=== PATIENT | male | born 1950 | race Caucasian/White ===

== ENCOUNTER 2018-05-19 09:32 | Day surgery (SDC) | payer MEDICARE, OTHER ==
[~2018-05-19 09:32] MED LIST: CEFAZOLIN 2 Gram 2 GM/50 ML BAG IVPB ONE; CELECOXIB 100 MG CAPSULE PO ONE; FAMOTIDINE 20MG TABLET PO ONE; MECLIZINE 25 MG TABLET PO ONE; METOCLOPRAMIDE 10 MG TABLET PO ONE; VANCOMYCIN HCL 1,000 MG in DEXTROSE 5 % IN WATER 250 ML IVPB ONE
[2018-05-19] MEDS ORDERED: BUPIVACAINE 0.5% W/EPI MPF 30 ML VIAL IVP ONE (09:33)
[2018-05-19] MEDS ORDERED: TRANEXAMIC ACID 1,000 MG/10 ML ML IV ONE (09:33)
[2018-05-19] MEDS ORDERED: ROPIVACAINE HCL (NAROPIN) /PF 5MG/ML 20ML VIAL IV ONE (09:33)
[2018-05-19] MEDS ORDERED: *PACU ONLY* KETAMINE HCL 10 MG/ML (20ML) VIAL IV ONE (09:33)
[2018-05-19] MEDS ORDERED: LIDOCAINE 2% MDV (20MG/ML) 20ML VIAL IV ONE (09:33)
[2018-05-19] MEDS ORDERED: DEXAMETHASONE 4 MG/ML 1ML VIAL IVP ONE (09:33)
[2018-05-19] MEDS ORDERED: PROPOFOL 10 MG/ML VIAL IV ONE (09:33)
[2018-05-19] MEDS ORDERED: MIDAZOLAM HCL 2MG/2ML VIAL IV ONE (09:33)
[2018-05-19 10:18] LABS: ABO GROUP A; ANTIBODY SCREEN NEGATIVE (NEGATIVE); RH TYPE POSITIVE
[2018-05-19] MEDS ORDERED: NALOXONE 0.4 MG/1 ML VIAL IVP PRN (15:01)
[2018-05-19] MEDS ORDERED: ACETAMINOPHEN 325 MG TAB PO PRN (15:01)
[2018-05-19] MEDS ORDERED: AL HYDROX/MAG HYDROX 30ML UD PO PRN (15:01)
[2018-05-19] MEDS ORDERED: BISACODYL 10 MG SUPP RC PRN (15:01)
[2018-05-19] MEDS ORDERED: ZOLPIDEM TARTRATE 5 MG TABLET PO PRN (15:01)
[2018-05-19] MEDS ORDERED: KETOROLAC 30 MG/ML VIAL IVP PRN ×2 (15:01)
[2018-05-19] MEDS ORDERED: MAGNESIUM HYDROXIDE 30 ML UDC PO PRN (15:01)
[2018-05-19] MEDS ORDERED: DIPHENHYDRAMINE HCL 25 MG CAPSULE PO PRN (15:01)
[2018-05-19] MEDS ORDERED: HYDROMORPHONE HCL 2 MG/ML VIAL IM PRN (15:01)
[2018-05-19] MEDS ORDERED: TRAMADOL HCL 50 MG TABLET PO PRN (15:01)
[2018-05-19] MEDS ORDERED: ONDANSETRON HCL IV 4 MG/2 ML VIAL IVP PRN (15:01)
[2018-05-19] MEDS ORDERED: ACETAMINOPHEN W/ CODEINE 300MG/60MG TABLET PO PRN ×2 (15:01)
--- NOTE | 2018-05-19 17:54 | Rehab Evaluation ---
Patient Information - Patient Information Diagnosis: L knee OA Ordered Treatment: PT Evaluate and Treat Status: Initial Evaluation Surgery: Yes (L TKA) Date of Surgery: 05/19/18 Past Medical/Surgical Hx: PAST MEDICAL/SURGICAL HISTORY Past Surgical History bilat shoulder RTC total hip knee scope PMH - Respiratory Hx Respiratory Disorders Yes Hx Bronchitis Yes Hx Sleep Apnea Yes Hx of CPAP Yes PMH - Cardiovascular Hx Cardiovascular Disorders Yes Hx Edema Yes: mild in the past Hx Hypertension Yes: on meds good control Exercise Tolerance Fair Comment: d/t knee pain PMH - Neuro Hx Neurological Disorders No PMH - GI Hx Gastrointestinal Disorders Yes Hx Ulcer Yes: in the past PMH - Hx Genitourinary Disorders No PMH - Endocrine Hx Endocrine Disorders No PMH - Musculoskeletal Hx Musculoskeletal Disorders Yes Hx Arthritis Yes Hx Gout Yes PMH - Psych Hx Psychiatric Problems Yes Hx Anxiety Yes Hx Depression Yes PMH - Hematology/Oncology Hx Hematology/Oncology Yes Disorders Hx Bruising Yes: bruises easily Premorbid Status: Detail (The patient was independent with all mobility.) Social History: Detail (The patient lives with spouse in a one story house with 3 steps at the enterance with one hand rail. The patient has two bathrooms but will be using the one that has the [id number] stall and standard toilet. The patient has a walker with 2 wheels and a std. cane.) Precautions: [place], Fall, Other (WBAT on the L LE) - Time With Patient Total Time Spent With Patient (Min): 30 Treatment Procedures: Detail (Initial Evaluation and gait training.) Subjective Information - Subjective Information Per Patient (The patient has no complaints of pain) Objective Data - Mental Status Patient Orientation: Oriented x3 - Visual Perception Appears within normal limits for therapeutic activities - ROM Not within normal limits (The patient has limited L knee AROM as to be expected following surgery. All other LE AROM is WNL.) - Strength/Tone Not within normal limits (The patient's L LE was not tested secondary to s/p surgery however is funtional (the patient is able to complete a SLR). R LE is 4 + to 5/5.) - Bed Mobility Independent (Independent with supin to and from sit transfer and scooting up in bed.) - Transfers Independent (Independent sit to and from stand transfer) - Balance Balance Sitting: Good Balance Standing: Good - Sensation Intact - Gait Detail (The patient ambulated with standard walker, WBAT on the L LE independently a distance of 80 feet x 1.) Therapy Assessment - Therapy Assessment Detail (The patient was independent with bed mobility, transfers and ambulation. Feel the patient will progress well with mobility.) Patient Education - Patient Education Teaching Topic: Exercise/Activity (The patient completed TKA HEP including heel slides, ankle pumps, quad sets, gluteal sets, hamstring sets and SLR.) Response: Return Demonstration Teaching Method: Discussion, Handout Teaching Recipient: Patient Barriers To Learning: None Problem List - Problem List Physical Therapy Problem List: Detail (1) Decreased L LE strength and L knee AROM as to be expected following surgery. 2) Non ambulatory on stairs.) Goals - Goals Physical Therapy Goals: The patient will ambulate on stairs with supervision for safety. Prognosis - Prognosis Good Plan - Plan Physical Therapy Plan: PT 1 to 2 visits for gait training on stairs.
[2018-05-19] MEDS: HYDROCODONE/APAP 10/325 TABLET PO PRN (20:39)
[2018-05-19] MEDS ORDERED: CEFAZOLIN 1 Gram 2 GM/100 ML BAG IVPB SCH (20:45)
[2018-05-19] MEDS ORDERED: CEFAZOLIN 2 Gram 2 GM/50 ML BAG IVPB SCH (21:00)
[2018-05-19] MEDS: DOCUSATE SODIUM 100 MG CAPSULE PO SCH (21:14)
[2018-05-19] MEDS ORDERED: CEFAZOLIN 1 Gram 1 GM/50 ML BAG IVPB ONE (22:15)
--- NOTE | 2018-05-19 22:31 | Operative Note ---
DATE OF SURGERY: 05/19/2018 PREOPERATIVE DIAGNOSIS: END-STAGE ARTHROSIS OF THE LEFT KNEE. POSTOPERATIVE DIAGNOSIS: END-STAGE ARTHROSIS OF THE LEFT KNEE. PROCEDURE: Cemented left total knee arthroplasty using [employer] Marjorie II components, with a size 6 Oxinium posterior stabilized femoral component, a size 6 stemmed tibial baseplate, a 9 mm lipped posterior stabilized tibial insert, and a 35 mm all-plastic patella. STAFF SURGEON: ANNALEE CHRISTIANSON M.D. ANESTHESIA: SPINAL. PREPARATION: CHLORAPREP. INDIVIDUAL CONSIDERATIONS: NONE. PROCEDURE: The patient was taken to the Operating Room and placed supine on the operating table. He had the successful induction with spinal anesthetic. His left lower extremity was prepped and then draped in the usual fashion. The limb was elevated and the tourniquet was inflated to 215 mmHg. The patient had a midline approach to the knee. Sharp dissection was carried down through the skin and subcutaneous tissues. Small veins were coagulated with a Bovie. A medial arthrotomy was performed. The patella was everted and the knee was flexed. The patient had exposed bone throughout with bone loss medially. Large osteophytes. The fat pad was resected. There really wasn't much of an ACL and the PCL was very atrophic and macerated to boot. Provisional anterior meniscectomies were performed and the capsule was released from the medial proximal tibia. The initial femoral elevator pilot hole was then made freehand. The intramedullary femoral cutting jig was placed. It was cut in 7.0 degrees of valgus and adjusted for rotation and secured with pins for a 10 mm resection. The initial transverse cut was then made. The skin guide was placed for the anterior and posterior elevator pilot holes. It was found that a size 6 would be appropriate. The anterior and posterior cuts followed by chamfer cuts were made, osteophytes were removed, and a size 6 trial was placed and found to fit well. The tibia was brought forward and the remainder of the meniscal remnants were removed with a Bovie. The extraarticular tibial cutting jig was placed. It was cut in neutral with a 3 degree AP slope. Care was taken to adjust for rotation and flexion using the extraarticular alignment guide and bony landmarks. It was set for a 9 mm resection, keyed off the high lateral side, and secured with pins. When cutting the tibia, I attempted to preserve whatever was left of the PCL. Large medial osteophytes were removed and then I was able to fit a size 6 baseplate trial. It was adjusted for rotation. With the femoral component and a 9 mm tibial component, there was excellent stability except for posteriorly and at this point, I just covered the PCL. It was basically incompetent and I elected to go to a posterior stabilized. The femoral cutting jig for the posterior stabilized was then attached. It was reamed in the notch and the box cutting osteotome was used to remove the bone and then was it was debrided out with a Bovie. After irrigation, I was able to cut the patella freehand. He had a thick patella, removing 9 mm of bone. The tourniquet was let down briefly to get bleeders posteriorly and placed back up again. The knee was then thoroughly irrigated out with pulsatile Betadine and saline to remove any visual or palpable debris. Bony surfaces were then dried. The size 6 stemmed tibial baseplate was cemented into place, followed by cementing in the size 6 Oxinium posterior stabilized femoral component, followed by impaction of the 9 mm posterior stabilized tibial insert, followed by cementing in the 35 mm all-plastic patella. Implant surfaces were compressed , excess cement was removed, and then after the cement had set, there was excellent motion and stability, ligamentous balance, rotation and alignment and patellofemoral tracking were through to be normal. Again, thorough irrigation. The tourniquet was let down and hemostasis was obtained with the Bovie. I took 30 mL of 0.5% Marcaine with Epinephrine and infiltrated the periosteum and skin and subcutaneous tissue. I then closed the capsule with a running #2 Quill, the subcu was closed in layers with a running 0 Quill, and the skin was closed with medina. The patient did receive a gram of Tranexamic Acid preoperatively. I mixed a gram of Tranexamic Acid with 30 mL of saline and injected it into the knee through a sterile #18 gauge needle and a sterile Bulkee compressive dressing was applied. The patient tolerated the procedure well. Needle and sponge counts were correct. Estimated blood loss was minimal and he was taken back to Recovery in good condition. There were no complications. cc: Dr. Comfort Healy JOB NUMBER: [id number] [id number]
[2018-05-20] MEDS: HYDROCODONE/APAP 10/325 TABLET PO PRN ×3 (04:33→13:43)
[2018-05-20] MEDS: CEFAZOLIN 1 Gram 1 GM/50 ML BAG IVPB SCH ×4 (04:34→13:07)
[2018-05-20] MEDS: POTASSIUM CHLORIDE/D5-0.9%NACL 20 MEQ/1,000 ML BAG IV SCH ×2 (04:39→04:43)
[2018-05-20 06:48] LABS: HEMATOCRIT 37.2 % (42.0-52.0); HEMOGLOBIN 12.6 gm/dl (14.0-18.0)
[2018-05-20 07:17] LABS: BLOOD UREA NITROGEN 14 mg/dL (8-23); CREATININE 0.8 mg/dL (0.7-1.2); EST GLOMERULAR FILTRATION RATE > 60 mL/min; GLUCOSE,RANDOM 153 mg/dL (74-109)
--- NOTE | 2018-05-20 08:25 | Rehab Evaluation ---
Patient Information - Patient Information Diagnosis: L knee DJD Ordered Treatment: OT Evaluate and Treat Status: Initial Evaluation Surgery: Yes (L TKA) Date of Surgery: 05/19/18 Past Medical/Surgical Hx: PAST MEDICAL/SURGICAL HISTORY Past Surgical History bilat shoulder RTC total hip knee scope PMH - Respiratory Hx Respiratory Disorders Yes Hx Bronchitis Yes Hx Sleep Apnea Yes Hx of CPAP Yes PMH - Cardiovascular Hx Cardiovascular Disorders Yes Hx Edema Yes: mild in the past Hx Hypertension Yes: on meds good control Exercise Tolerance Fair Comment: d/t knee pain PMH - Neuro Hx Neurological Disorders No PMH - GI Hx Gastrointestinal Disorders Yes Hx Ulcer Yes: in the past PMH - Hx Genitourinary Disorders No PMH - Endocrine Hx Endocrine Disorders No PMH - Musculoskeletal Hx Musculoskeletal Disorders Yes Hx Arthritis Yes Hx Gout Yes PMH - Psych Hx Psychiatric Problems Yes Hx Anxiety Yes Hx Depression Yes PMH - Hematology/Oncology Hx Hematology/Oncology Yes Disorders Hx Bruising Yes: bruises easily Premorbid Status: Detail (The patient was independent with all mobility.) Social History: Detail (The patient lives with spouse in a one story house with 3 steps at the entrance with one hand rail. The patient has two bathrooms, one with a tub/shower combination and the other one has a onoh-mk-tzacxe stall and standard toilet with riser. The patient has a walker with 2 wheels,a std. cane and a shower bench. He is responsible for meal prep, laundry and yard work and his is responsible for home mgmt.) Precautions: [place], Fall, Other (WBAT on the L LE) - Time With Patient Total Time Spent With Patient (Min): 30 Treatment Procedures: Detail (OT eval low complexity) Subjective Information - Subjective Information Per Patient Objective Data - Pain Pain Present: Yes (11/22) - Mental Status Patient Orientation: Oriented x3 - Visual Perception Appears within normal limits for therapeutic activities - ROM Within normal limits (Rod UE AROM WNL) - Strength/Tone Within normal limits (Rod UE strength WNL) - Coordination Appears within normal limits for therapeutic activities - Bed Mobility Independent (Ind with supine to sit) - Transfers Independent (Ind with sit to stand from EOB) - Balance Balance Sitting: Good Balance Standing: Good - Sensation Intact - ADL's/IADL's Detail (Pt educated and demonstrated modified LE dressing techniques including doffing briefs and slipper socks and donning briefs, shorts, socks and slip on shoes. Reviewed safety and modifications with kitchen and shower. Pt verbalized learning.) Therapy Assessment - Therapy Assessment Detail (Pt is safe and Ind with LE self cares.) Problem List - Problem List Physical Therapy Problem List: Detail (1) Decreased L LE strength and L knee AROM as to be expected following surgery. 2) Non ambulatory on stairs.) Occupational Therapy Problem List: Detail (No current OT problems identified.) Goals - Goals Physical Therapy Goals: The patient will ambulate on stairs with supervision for safety. Occupational Therapy Goals: No current IP OT goals identified. Prognosis - Prognosis Good Plan - Plan Physical Therapy Plan: PT 1 to 2 visits for gait training on stairs. Occupational Therapy Plan: No further IP OT recommended. Thank you for this referral.
[2018-05-20] MEDS: DOCUSATE SODIUM 100 MG CAPSULE PO SCH (09:11)
[2018-05-20] MEDS ORDERED: SIMVASTATIN 20 MG TABLET PO SCH (10:00)
[2018-05-20] MEDS ORDERED: PAROXETINE HCL 10 MG TABLET PO SCH (10:00)
[2018-05-20] MEDS ORDERED: ALLOPURINOL 100 MG TAB PO SCH (10:00)
[2018-05-20] MEDS ORDERED: LISINOPRIL 20 MG TABLET PO SCH (10:00)
[2018-05-20] MEDS ORDERED: FERROUS SULFATE 325 MG TAB PO SCH (10:00)
[2018-05-20] MEDS ORDERED: RIVAROXABAN 10 MG TABLET PO SCH (10:00)
[2018-05-20] MEDS ORDERED: MULTIVITAMINS/MINERALS TABLET PO SCH (10:00)
--- NOTE | 2018-05-20 10:00 | Physical Therapy Tx Note ---
Physical Therapy Tx Note - Treatment Note Tolerated: Good Total Time Spent With Patient: 15 Physical Therapy Tx Note: Detail (The patient denied pain this am. The patient ambulated with standard walker 26 feet x 1 independently WBAT on the R LE. The patient ambulated on 3 steps with use of folded walker and railing with supervision for safety only. The patient has met all inpatient PT goals and is discharged from inpatient PT.) Physical Therapy Problem List: Detail (1) Decreased L LE strength and L knee AROM as to be expected following surgery. 2) Non ambulatory on stairs.) Physical Therapy Goals: The patient will ambulate on stairs with supervision for safety.(Goal met)/ Physical Therapy Plan: The patient has met all inpatient PT goals . The patient is to receive Home PT.
== END 2018-05-20 02:10 | disposition home or self-care (01) ==
LOC: MEDSURG 09:32 → SUR 09:32 → MEDSURG 15:45 → SUR 05-20 02:10
PROVIDERS: ATTEND Orthopaedic Surgery
DX: M17.12 Unilateral primary osteoarthritis, left knee (principal); I10 Essential (primary) hypertension; M10.9 Gout, unspecified; E78.00 Pure hypercholesterolemia, unspecified
CPT/HCPCS: 80048; 85014; 85018; 86850; 86900; 86901; 97530; J3480; J7060

== ENCOUNTER 2018-08-04 06:34 | Day surgery (SDC) | payer MEDICARE, OTHER ==
[2018-08-04] MEDS ORDERED: BUPIVACAINE 0.5% W/EPI MPF 30 ML VIAL IVP ONE (06:35)
[2018-08-04] MEDS ORDERED: DEXAMETHASONE 4 MG/ML 1ML VIAL IVP ONE (06:35)
[2018-08-04] MEDS ORDERED: TRANEXAMIC ACID 1,000 MG/10 ML ML IV ONE ×2 (06:35)
[2018-08-04] MEDS ORDERED: KETOROLAC 30 MG/ML VIAL IVP ONE (06:35)
[2018-08-04] MEDS ORDERED: **ER** KETAMINE HCL 500MG/10ML VIAL IV ONE (06:35)
[2018-08-04] MEDS ORDERED: 0.9 % SODIUM CHLORIDE 10 ML VIAL IVP ONE (06:35)
[2018-08-04] MEDS ORDERED: MIDAZOLAM HCL 2MG/2ML VIAL IV ONE (06:35)
[2018-08-04] MEDS ORDERED: GLYCOPYRROLATE 0.2 MG/ML ML IV ONE (06:35)
[2018-08-04] MEDS ORDERED: ROPIVACAINE HCL (NAROPIN) /PF 5MG/ML 20ML VIAL IV ONE (06:35)
[2018-08-04] MEDS ORDERED: PROPOFOL 10 MG/ML VIAL IV ONE (06:35)
[2018-08-04 07:47] LABS: ABO GROUP A; ANTIBODY SCREEN NEGATIVE (NEGATIVE); RH TYPE POSITIVE
[2018-08-04] MEDS ORDERED: KETOROLAC 30 MG/ML VIAL IVP PRN ×2 (10:50)
[2018-08-04] MEDS ORDERED: ACETAMINOPHEN 325 MG TAB PO PRN (10:50)
[2018-08-04] MEDS ORDERED: ONDANSETRON HCL IV 4 MG/2 ML VIAL IVP PRN (10:50)
[2018-08-04] MEDS ORDERED: ZOLPIDEM TARTRATE 5 MG TABLET PO PRN (10:50)
[2018-08-04] MEDS ORDERED: BISACODYL 10 MG SUPP RC PRN (10:50)
[2018-08-04] MEDS ORDERED: DIPHENHYDRAMINE HCL 25 MG CAPSULE PO PRN (10:50)
[2018-08-04] MEDS ORDERED: MAGNESIUM HYDROXIDE 30 ML UDC PO PRN (10:50)
[2018-08-04] MEDS ORDERED: HYDROMORPHONE HCL 2 MG/ML VIAL IM PRN (10:50)
[2018-08-04] MEDS ORDERED: ACETAMINOPHEN W/ CODEINE 300MG/60MG TABLET PO PRN ×2 (10:50)
[2018-08-04] MEDS ORDERED: NALOXONE 0.4 MG/1 ML VIAL IVP PRN (10:50)
[2018-08-04] MEDS ORDERED: TRAMADOL HCL 50 MG TABLET PO PRN (10:50)
[2018-08-04] MEDS ORDERED: HYDROCODONE/APAP 10/325 TABLET PO PRN (10:50)
[2018-08-04] MEDS ORDERED: AL HYDROX/MAG HYDROX 30ML UD PO PRN (10:50)
[2018-08-04] MEDS: HYDROCODONE/APAP 10/325 TABLET PO PRN ×2 (16:17→21:56)
[2018-08-04] MEDS: CEFAZOLIN 2 Gram 2 GM/50 ML BAG IVPB SCH (16:18)
--- NOTE | 2018-08-04 16:27 | Rehab Evaluation ---
Patient Information - Patient Information Diagnosis: R knee OA Ordered Treatment: PT Evaluate and Treat Status: Initial Evaluation Surgery: Yes (R TKA) Date of Surgery: 08/04/18 Past Medical/Surgical Hx: PAST MEDICAL/SURGICAL HISTORY Past Surgical History [facility] 05-19-2018 bilat shoulder RTC total hip knee scope PMH - Respiratory Hx Respiratory Disorders Yes Hx Bronchitis Yes Hx Sleep Apnea Yes Hx of CPAP Yes PMH - Cardiovascular Hx Cardiovascular Disorders Yes Hx Edema Yes: mild in the past Hx Hypertension Yes: on meds good control Exercise Tolerance Fair Comment: d/t knee pain PMH - Neuro Hx Neurological Disorders No PMH - GI Hx Gastrointestinal Disorders Yes Hx Ulcer Yes: in the past PMH - Hx Genitourinary Disorders No PMH - Endocrine Hx Endocrine Disorders No PMH - Musculoskeletal Hx Musculoskeletal Disorders Yes Hx Arthritis Yes Hx Gout Yes PMH - Psych Hx Psychiatric Problems Yes Hx Anxiety Yes Hx Depression Yes PMH - Hematology/Oncology Hx Hematology/Oncology Yes Disorders Hx Bruising Yes: bruises easily Premorbid Status: Detail (The patient was independent with all mobility prior to surgery.) Social History: Detail (the patient lives in 1 story house with spouse with 4 steps at the enterance with one handrail. The patient's bathroom is equipped with a [id number] with a shower chair, toilet with a riser seat. The patient has a front wheeled walker and a single point cane.) Precautions: [place], Fall, Other (WBAT on the L LE) - Time With Patient Total Time Spent With Patient (Min): 30 Treatment Procedures: Detail (Initial Evaluation and gait training) Subjective Information - Subjective Information Per Patient (The patient had no complaints of pain.) Objective Data - Mental Status Patient Orientation: Oriented x3 - Visual Perception Appears within normal limits for therapeutic activities - ROM Not within normal limits (The patient's R knee AROM is limited as to be expected following surgery. All other knee AROM is WFL.) - Strength/Tone Not within normal limits (The patient's R LE strength was not tested s/p surgery however was functional ie: patient was able to ambulate and complete SLR. Patient's L LE was WFL.) - Bed Mobility Independent (The patient was independent with supine to and from sit.) - Transfers Independent (Independent with sit to and from stand.) - Balance Balance Sitting: Good Balance Standing: Good - Sensation Intact - Gait Detail (The patient ambulated with front wheeled walker independently with WBAT on the R a distance of 134 feet x1.) Therapy Assessment - Therapy Assessment Detail (The patient was independent with bed mobility,transfers and ambulation. Feel patient will progress well with mobility.) Patient Education - Patient Education Teaching Topic: Exercise/Activity (HEP on seated heel slides, ankle pumps and gluteal sets was reviewed. Rest of exercise program will be reviewed tomorrow.) Response: Return Demonstration Teaching Method: Demonstration, Handout Teaching Recipient: Patient Barriers To Learning: None Problem List - Problem List Physical Therapy Problem List: Detail (Decreased R LE knee AROM and R LE strength as to be expected s/p surgery.) Goals - Goals Physical Therapy Goals: 1) The patient will ambulate on stairs with supervision for safety using proper technique. 2) The patient will be independent with HEP. Prognosis - Prognosis Good Plan - Plan Physical Therapy Plan: PT 1 to 2 sessions for gait training on stairs and instruction in HEP.
[2018-08-04] MEDS: POTASSIUM CHLORIDE/D5-0.9%NACL 20 MEQ/1,000 ML BAG IV SCH (21:57)
[2018-08-04] MEDS: DOCUSATE SODIUM 100 MG CAPSULE PO SCH (21:57)
[2018-08-05] MEDS: CEFAZOLIN 2 Gram 2 GM/50 ML BAG IVPB SCH ×2 (01:48→09:47)
[2018-08-05] MEDS: HYDROCODONE/APAP 10/325 TABLET PO PRN ×2 (06:32→12:02)
[2018-08-05 06:36] LABS: HEMATOCRIT 37.3 % (42.0-52.0); HEMOGLOBIN 12.5 gm/dl (14.0-18.0)
[2018-08-05 06:46] LABS: BLOOD UREA NITROGEN 14 mg/dL (8-23); CREATININE 0.8 mg/dL (0.7-1.2); EST GLOMERULAR FILTRATION RATE > 60 mL/min; GLUCOSE,RANDOM 133 mg/dL (74-109)
[2018-08-05] MEDS: POTASSIUM CHLORIDE/D5-0.9%NACL 20 MEQ/1,000 ML BAG IV SCH ×2 (07:55→14:50)
--- NOTE | 2018-08-05 08:17 | Rehab Evaluation ---
Patient Information - Patient Information Diagnosis: R knee OA Ordered Treatment: OT Evaluate and Treat Status: Initial Evaluation Surgery: Yes (R TKA) Date of Surgery: 08/04/18 Past Medical/Surgical Hx: PAST MEDICAL/SURGICAL HISTORY Past Surgical History [facility] 05-19-2018 bilat shoulder RTC total hip knee scope PMH - Respiratory Hx Respiratory Disorders Yes Hx Bronchitis Yes Hx Sleep Apnea Yes Hx of CPAP Yes PMH - Cardiovascular Hx Cardiovascular Disorders Yes Hx Edema Yes: mild in the past Hx Hypertension Yes: on meds good control Exercise Tolerance Fair Comment: d/t knee pain PMH - Neuro Hx Neurological Disorders No PMH - GI Hx Gastrointestinal Disorders Yes Hx Ulcer Yes: in the past PMH - Hx Genitourinary Disorders No PMH - Endocrine Hx Endocrine Disorders No PMH - Musculoskeletal Hx Musculoskeletal Disorders Yes Hx Arthritis Yes Hx Gout Yes PMH - Psych Hx Psychiatric Problems Yes Hx Anxiety Yes Hx Depression Yes PMH - Hematology/Oncology Hx Hematology/Oncology Yes Disorders Hx Bruising Yes: bruises easily Premorbid Status: Detail (The patient was independent with all mobility, ADLs, meal prep and laundry prior to surgery. His was responsible for home mgmt and will be available to assist as needed.) Social History: Detail (Patient lives with spouse in 1 story house with basement , he stays on the main floor generally. He has 4 steps at the entrance with one handrail. The patient's bathroom is equipped with a [id number], he has access to a shower chair. His toilet is standard height and he has a riser seat. There are no grab bars in the bathroom. The patient has a front wheeled walker and a single point cane.) Precautions: [place], Fall, Other (WBAT on the L LE) - Time With Patient Total Time Spent With Patient (Min): 30 Treatment Procedures: Detail (OT eval low complexity) Subjective Information - Subjective Information Per Patient Objective Data - Pain Pain Present: Yes (11/22) - Mental Status Patient Orientation: Oriented x3 - Visual Perception Appears within normal limits for therapeutic activities - ROM Within normal limits (Rod UE AROM WNL) - Strength/Tone Within normal limits (Rod UE strength WNL) - Coordination Appears within normal limits for therapeutic activities - Transfers Independent (Ind with sit to stand from chair height.) - Balance Balance Sitting: Good Balance Standing: Fair - Sensation Intact - ADL's/IADL's Detail (Pt educated and able to demonstrate learning of modified LE dressing techniques including doffing briefs and slipper socks and donning boxer shorts, shorts, socks and tennis shoes. Pt educated re: kitchen and shower safety and modifications, he verbalized understanding.) Therapy Assessment - Therapy Assessment Detail (Pt is safe and Ind with modified LE dressing techniques.) Problem List - Problem List Physical Therapy Problem List: Detail (Decreased R LE knee AROM and R LE strength as to be expected s/p surgery.) Occupational Therapy Problem List: Detail (No current IP OT problems identified. ) Goals - Goals Physical Therapy Goals: 1) The patient will ambulate on stairs with supervision for safety using proper technique. 2) The patient will be independent with HEP. Occupational Therapy Goals: No current IP OT goals identified. Prognosis - Prognosis Good Plan - Plan Physical Therapy Plan: PT 1 to 2 sessions for gait training on stairs and instruction in HEP. Occupational Therapy Plan: No further IP OT recommended. Thank you for this referral.
[2018-08-05] MEDS: DOCUSATE SODIUM 100 MG CAPSULE PO SCH (09:47)
[2018-08-05] MEDS ORDERED: FERROUS SULFATE 325 MG TAB PO SCH (10:00)
[2018-08-05] MEDS ORDERED: ALLOPURINOL 100 MG TAB PO SCH (10:00)
[2018-08-05] MEDS ORDERED: PAROXETINE HCL 10 MG TABLET PO SCH (10:00)
[2018-08-05] MEDS ORDERED: RIVAROXABAN 10 MG TABLET PO SCH (10:00)
[2018-08-05] MEDS ORDERED: LISINOPRIL 20 MG TABLET PO SCH (10:00)
[2018-08-05] MEDS ORDERED: SIMVASTATIN 20 MG TABLET PO SCH (10:00)
[2018-08-05] MEDS ORDERED: CHOLECALCIFEROL 1,000 UNIT TABLET PO SCH (10:00)
[2018-08-05] MEDS ORDERED: MULTIVITAMINS/MINERALS TABLET PO SCH (10:00)
--- NOTE | 2018-08-05 10:04 | Physical Therapy Tx Note ---
Physical Therapy Tx Note - Treatment Note Tolerated: Good Total Time Spent With Patient: 20 Physical Therapy Tx Note: Detail (The patient ambulated 130 feet x 1 with front wheeled walker WBAT on R LE independently. The patient ambulated on 3 steps with use of one railing and folded walker with proper technique with supervision for safety. The patient completed TKA exercises independenly including SLR, quad sets, hamsting sets, heelslides, gluteal sets and ankle pumps. The patient has met all inpatient goals and is discharged from inpatient PT.) Physical Therapy Problem List: Detail (Decreased R LE knee AROM and R LE strength as to be expected s/p surgery.) Physical Therapy Goals: 1) The patient will ambulate on stairs with supervision for safety using proper technique. (Goal Met). 2) The patient will be independent with HEP.( Goal Met) Physical Therapy Plan: PT 1 to 2 sessions for gait training on stairs and instruction in HEP.
--- NOTE | 2018-08-05 11:50 | Operative Note ---
DATE OF SERVICE: 08/04/2018. DATE OF SURGERY: 08/04/2018. PREOPERATIVE DIAGNOSIS: End-stage arthrosis of the right knee. POSTOPERATIVE DIAGNOSIS: End-stage arthrosis of the right knee. OPERATION: Cemented right total knee arthroplasty using [employer]ie II components, with a size 5 Oxinium femur, size 5 stemmed tibial baseplate, a 9 mm lipped poly cross-linked tibial insert, and a 35 mm all plastic patella. Staff Surgeon: Mike Walters MD. Anesthesia: Spinal. PREPARATION: ChloraPrep. INDIVIDUAL CONSIDERATIONS: None. PROCEDURE: Patient was taken to the operating room, placed supine on the operating table. He had a successful induction of spinal anesthetic. His right lower extremity was prepped and draped in the usual fashion. The limb was elevated and tourniquet was inflated to 250 mmHg. Patient had midline approach to the knee. Sharp dissection carried down through skin and subcutaneous tissue. Small veins were coagulated with the Bovie. A medial arthrotomy was performed. Patella was everted. The knee was flexed. He had exposed bone in the medial and patellofemoral compartments with bone loss. Fat pad was resected, ACL was sacrificed, provisional anterior meniscectomies were performed, and the capsule was released from the medial proximal tibia. The initial femoral state pilot hole was then made freehand. The intramedullary femoral cutting jig was placed. It was cut in 7.0 degrees of valgus and adjusted for rotation, secured with pins for a 10 mm resection. The initial transverse cut was then made. Skid guide was placed for the anterior and posterior state pilot holes, and it was found that a size 5 would be appropriate. The anterior and posterior cuts, followed by chamfer cuts were made, osteophytes removed, and the size 5 trial was placed and found to fit well. Tibia was brought forward, and the remainder of the meniscal remnants was removed with the Bovie. The extraarticular tibial cutting jig was placed. It was cut in neutral with a 3 degree AP slope. Care was taken to adjust for rotation and flexion using the extraarticular alignment guide and bony landmarks. It was set for a 9 mm resection keyed off the high lateral side, secured with pins. When cutting the tibia, care was taken to preserve the PCL insertion on the tibia. Large osteophytes were removed, and I could only fit a 5, so I adjusted for rotation, secured with pins, and with a 9 mm trial, there were excellent motion and stability. The femoral state pilot holes were impacted, the triflanged tibial keel was impacted, and these trial components were removed. The patient had a thick patella, and roughly 9 mm of bone were removed freehand. I was easily able to fit a 35 patella, and the 3 state pilot holes were drilled. Tourniquet was let down briefly to get bleeders posteriorly, then placed back up again. The knee was then thoroughly irrigated out with pulsatile Betadine and saline to remove any visual or palpable debris. Bony surfaces were then dried. A size 5 stemmed tibial baseplate was cemented into place, followed by impaction of the 9 mm lipped tibial insert, followed by cementing in the size 5 Oxinium femur, followed by cementing in the 35 mm patella. Implant surfaces were compressed, excess cement was removed, and after the cement had set, there were excellent motion and stability. Ligamentous balance, rotational alignment, and patellofemoral tracking were thought to be normal. No lateral release was required. Again thorough irrigation, and the tourniquet was let down. The hemostasis was obtained with a Bovie. I then took 30 mL of Marcaine with epinephrine, infiltrated the periosteum on both sides medially and laterally, and the skin and subcu with a sterile 22 gauge needle. The capsule was then closed with running #2 Quill. The subcu was closed in layers with running 0 Quill. Skin was closed with medina. Patient did receive 1 g of tranexamic acid preoperatively. I mixed 1 g of tranexamic acid with 30 mL of normal saline, injected it into the knee through a sterile 18 gauge needle, and a sterile, bulky, compressive YARELIS-type dressing was applied. Patient tolerated the procedure well. Needle and sponge counts were correct. Estimated blood loss was minimal, and he was taken back to recovery in good condition. There were no complications. REBECA
== END 2018-08-05 13:47 | disposition home or self-care (01) ==
LOC: SUR 06:34 → MEDSURG 11:26 → SUR 08-05 13:47
PROVIDERS: ATTEND Orthopaedic Surgery
DX: M17.11 Unilateral primary osteoarthritis, right knee (principal); I10 Essential (primary) hypertension; E78.00 Pure hypercholesterolemia, unspecified; G47.33 Obstructive sleep apnea (adult) (pediatric)
CPT/HCPCS: 27447; 01402; 64447; 85018; 85014; 80048; 86900; 86901; 86850; 90686; G0008; J1885 ×2; J3370; J0690 ×2; J3490 ×3; J2795; G8978; G8979 ×2; G8980; G8987; G8988; G8989; 97530; C1776; J3480; J7060